=== PATIENT | female | born 1955 | race Caucasian/White ===

== ENCOUNTER → 2021-02-17 09:28 | Outpatient (CLI) | payer MEDICARE, OTHER, SELFPAY ==
[2021-02-17 14:09] LABS: COVID19 -Nasal RAPID Negative (Negative)
== END ==
PROVIDERS: PCP Family Medicine; Visit Provider Nurse Practitioner
DX: Z20.822 Contact with and (suspected) exposure to COVID-19 (principal)
CPT/HCPCS: 87635; C9803

== ENCOUNTER 2021-02-18 14:57 | Day surgery (SDC) | payer MEDICARE, OTHER, SELFPAY ==
--- NOTE | 2021-02-18 | PATH_ITS ---
[facility] Accession Number: [id number] . 01 Material submitted: . PART A: colon - DESCENDING POLYPS X3 PART B: colon - RANDOM COLON BIOPSIES PART C: colon - TRANSVERSE COLON POLYPS X3 . 02 Diagnosis: A. Descending Colon, Polyps x3, Biopsies: Tubular adenoma in one of two fragments. Hyperplastic polyp in one fragment. Additional deeper levels were examined. . B. Random Colon, Biopsies: Colonic mucosa with no diagnostic abnormality. Negative for active, chronic, and microscopic colitis. Negative for dysplasia and malignancy. . C. Transverse Colon, Polyps x3, Biopsies: Tubular adenoma in two of four fragments. Sessile serrated adenoma in two fragments. [facility] 02/21/2021 1446 Local . 02 Electronically signed: . Christy Theodore MD, Pathologist NPI- [id number] . 01 Gross description: . Part A: DESCENDING POLYPS X3: Received in formalin are 3 fragment(s) of zeng, soft tissue measuring 0.4 x 0.2 x 0.2 cm to 0.3 x 0.2 x 0.2 cm submitted entirely in 1 cassette(s) Part B: RANDOM COLON BIOPSIES: Received in formalin is 1 fragment(s) of zeng, soft tissue measuring 0.2 x 0.1 x 0.1 cm submitted entirely in 1 cassette(s) Part C: TRANSVERSE COLON POLYPS X3: Received in formalin are multiple fragment(s) of zeng, soft tissue measuring 1.5 x 0.9 x 0.2 cm in aggregate submitted entirely in 1 cassette(s) /TRAY 02/19/2021 0407 Local . 02 Pathologist provided ICD-10: D12.4, D12.3 . 02 CPT . 742865, 778697, [id number] Performed at: 01 [facility] [address] [place] [address], [place], [place] [id number] MD Deonte Anderson MD Phone: [phone] Performed at: 02 [facility] [place] [address] [address] [place], [place] [id number] MD Christy Theodore MD Phone: [phone]
[2021-02-18 15:25] VITALS: BP 135/79; PULSE 65; RESP 16; TEMP 36.8; O2SAT 97; BMI 31.3
--- NOTE | 2021-02-18 15:26 | P.HP_ITS ---
History of Present Illness History of Present Illness Date Patient Seen: 02/18/21 Time Patient Seen: 15:26 Chief complaint: DX COLONOSCOPY Narrative: I reviewed my note from December 23, 2020 no significant changes. Patient History Medical History Depression Dry mouth Endometriosis Fatigue GERD (gastroesophageal reflux disease) Hemorrhoids History of colon polyps Hypertension Tremor Weight gain Surgical History History of bilateral total hip arthroplasty History of colonoscopy History of hysterectomy History of tonsillectomy Meds Home Medications and Allergies Home Medications Medication Instructions Recorded Confirmed Type Fish Oil 02/18/21 History Imodium 02/18/21 History Vitamin D3 02/18/21 History fluticasone propionate 50 INTRANASAL 02/18/21 History mcg/actuation nasal spray,suspension ibuprofen 02/18/21 History lisinopril 10 mg tablet mg 02/18/21 History lovastatin 40 mg tablet mg 02/18/21 History primidone 250 mg tablet mg 02/18/21 History triamterene 75 tab 02/18/21 History mg-hydrochlorothiazide 50 mg tablet Allergies Allergy/AdvReac Type Severity Reaction Status Date / Time No Known Drug Allergies Allergy Verified 02/18/21 15:19 Review of Systems Review of Systems ROS: Yes All systems reviewed with the patient and are negative except as otherwise documented Exam Const General: cooperative and comfortable Orientation: alert [facility] Head: normocephalic Ears: external ears normal Nose: external nose normal Face and sinus: normal facial exam Mouth: oral mucosae normal Eyes General: appearance normal, both eyes and all related structures Neck Neck: normal visual inspection Chest Chest: normal inspection of the chest Resp Effort & Inspection: normal respiratory effort Auscultation: clear to auscultation bilaterally Cardio Rate: regular rate Rhythm: regular rhythm Heart Sounds: no murmurs GI Inspection: normal to inspection Palpation: soft and No tender Auscultation: normal bowel sounds Skin General: no rashes or lesions noted and No jaundice Neuro General: patient alert and moves all extremities Cognition: normal cognition Speech: speech normal Extrem General: no pedal edema Psych Appearance: grossly normal Assessment & Plan Assessment & Plan narrative: Personal history of colon polyps diarrhea times 2-3 years. Colonoscopy is planned for today with random biopsies even if the colon appears normal.
--- NOTE | 2021-02-18 15:29 | PM.PREOP ---
Pre-operative Note COVID-19 COVID-19 status: Negative Result date/Date tested (Pos, Neg/Pending): 02/17/21 Interval Note History & Physical reviewed/Exam performed by Physician: Yes Changes to H&P: No H&P completed within 30 days and has changed as indicated here:: See today's H/P. ASA Class (for procedural sedation): II
[2021-02-18] MEDS: SODIUM CHLORIDE 0.9% 1,000 ML 84 ML IV (15:40)
--- NOTE | 2021-02-18 16:21 | PM.OP.ENDO ---
Operative Date/Time/Diagnoses Date of procedure: 02/18/21 Time of procedure: 16:22 Pre-op diagnosis: Colon polyp history diarrhea Post-op diagnosis: same Procedure & Clinicians Study performed: Colonoscopy with biopsies, cold forceps polypectomy, cold snare polypectomy, hot snare polypectomy. Same procedure as scheduled: Yes Indications: Diarrhea personal history of colon polyps Surgeon: Adriano Santos Procedure Notes SCOAP/Timeout: Done Procedure in detail: After the risks and benefits were explained, written and verbal informed consent was obtained. The patient was brought into the procedure room and placed into the left lateral decubitus position. MAC was applied.. Digital rectal examination was accomplished. The scope was introduced into the patient and advanced under direct visualization to the cecum as identified by the appendiceal orifice and ileocecal valve. The scope was slowly withdrawn to carefully examine the mucosa for any defects or lesions. Comprehensive imaging was accomplished throughout the rectum including the dentate line. The colon was decompressed, the scope was then removed from the patient who tolerated the procedure well. Bowel prep fair with irrigation was rendered adequate. Monitored anesthesia see the notes Pediatric colonoscope Scope withdrawal time: 18 minutes Sedation minutes: 25 Complications: none Impression: Patient had fairly extensive diverticulosis in the sigmoid colon. Moderate internal hemorrhoids. No evidence of any proctitis or colitis. Random colon biopsies were taken for exclusion of microscopic colitis. The terminal ileum was interrogated and appeared visually normal. In the transverse colon starting at the hepatic flexure there were [address] of hot snare polypectomy for 2 of them and cold forceps for 1. In the descending colon there were another [address] of hot snare polypectomy and cold snare polypectomy for 1 of them. Endoscopic diagnosis 1. Multiple colon polyps 2. Diverticulosis 3. Grade 1-2 internal hemorrhoids Post-procedure Recommendations: Colonscopy in 3 years Plan for aftercare: 1. Await histopathology 2. If there is no suggestion of microscopic colitis patient, follow up in primary care with respect to the pilocarpine dosing. 3. Repeat colonoscopy in 3 years. Disposition: PACU
[2021-02-18 16:28] VITALS: BP 108/62; PULSE 71; RESP 13; TEMP 36.6; O2SAT 96
[2021-02-18 16:32] VITALS: BP 119/68; PULSE 73; RESP 13; O2SAT 95
[2021-02-18 16:37] VITALS: BP 133/80; PULSE 75; RESP 13; O2SAT 98
[2021-02-18 16:44] VITALS: BP 134/82; PULSE 72; RESP 13; TEMP 36.7; O2SAT 99
== END 2021-02-18 17:01 | disposition home or self-care (01) ==
PROVIDERS: PCP Family Medicine; Referring Provider Internal Medicine Gastroenterology; Visit Provider Internal Medicine Gastroenterology
PROC: 0DJD8ZZ Inspection of Lower Intestinal Tract, Via Natural or Artificial Opening Endoscopic (ICD-10-PCS; CPT 45378; principal; 2021-02-18 16:00)
DX: R19.7 Diarrhea, unspecified (principal); Z86.010 Personal history of colon polyps; K64.1 Second degree hemorrhoids; K57.30 Diverticulosis of large intestine without perforation or abscess without bleeding; K21.9 Gastro-esophageal reflux disease without esophagitis; I10 Essential (primary) hypertension; F32.9 Major depressive disorder, single episode, unspecified; R25.1 Tremor, unspecified; D12.4 Benign neoplasm of descending colon; D12.3 Benign neoplasm of transverse colon
CPT/HCPCS: 45385; 45380